=== PATIENT | female | born 1965 | race Caucasian/White ===

== ENCOUNTER → 2023-08-27 12:37 | Outpatient (CLI) | payer OTHER, SELFPAY ==
--- NOTE | 2023-08-27 12:43 | DI.RAD.S_ITS ---
PROCEDURE: XR FOOT RT MIN 3V INDICATIONS: bunion of right foot TECHNIQUE: Numeral 3 views of the foot were acquired. COMPARISON: None. FINDINGS: Bones: Fixation hardware traversing the 1st MTP. There is only slight valgus alignment. Plantar calcaneal enthesopathy. [id number] midfoot degenerative changes. Possible slight heterogeneity versus artifact of the 5th metatarsal on frontal view. Soft tissues: No suspicious calcifications. IMPRESSION: 1st MTP fixation hardware. Very slight valgus alignment. Plantar calcaneus enthesopathy. Fkys-bi-bjjauqas midfoot degenerative changes. Possible slight heterogeneity versus artifact of the 5th metatarsal on frontal view. Correlate with any symptoms. If there is further concern, consider cross-sectional imaging. Dictated by: Zeeshan Gillis M.D. on 08/27/2023 at 15:56 Approved by: Zeeshan Gillis M.D. on 08/27/2023 at 15:58
== END ==
LOC: RAD 12:41
PROVIDERS: PCP Nurse Practitioner Family; Referring Provider Nurse Practitioner Family; Visit Provider Nurse Practitioner Family
DX: M21.611 Bunion of right foot (principal); M77.31 Calcaneal spur, right foot
CPT/HCPCS: 73630

== ENCOUNTER → 2023-10-24 18:21 | Outpatient (CLI) | payer OTHER, SELFPAY ==
[2023-10-24 18:39] LABS: Appearance Urine UA CLEAR; Bilirubin Urine UA NEGATIVE (NEGATIVE); Color Urine UA YELLOW; Glucose Urine UA NEGATIVE (Negative); Ketones Urine UA NEGATIVE (NEGATIVE); Leukocyte Esterase Urine UA 1+ (NEGATIVE); Nitrite Urine UA POSITIVE (Negative); Occult Blood Urine UA NEGATIVE (Negative); Protein Urine UA NEGATIVE (Negative); Specific Gravity Urine UA >=1.030 (1.000-1.035); Urobilinogen Urine UA 0.2 E.U./dL (0.2)
[2023-10-24 18:40] LABS: pH Urine UA 5.5 (4.5-8.0)
[2023-10-24 18:48] LABS: Bacteria Urine Many (>30); RBC Urine 1-5/HPF (0-5/HPF); Squamous Epithelial Cell Urine 1-5 /HPF (0-5/HPF); Urine Volume 10mL (spun); WBC Urine 5-10/HPF (0-5/HPF)
== END ==
PROVIDERS: PCP Nurse Practitioner Family; Visit Provider Physician Assistant Surgical
DX: R35.0 Frequency of micturition (principal); R39.15 Urgency of urination
CPT/HCPCS: 81001; 87077; 87086; 87186

== ENCOUNTER → 2023-11-12 07:10 | Outpatient (CLI) | payer OTHER, SELFPAY | PROVIDERS: PCP Nurse Practitioner Family; Visit Provider Nurse Practitioner Family | DX: R30.0 Dysuria (principal); N39.0 Urinary tract infection, site not specified | CPT/HCPCS: 87086; 87210 ==

== ENCOUNTER → 2023-12-15 | Outpatient (CLI) | payer OTHER, SELFPAY ==
--- NOTE | 2023-12-15 09:22 | DI.MG.S_ITS ---
BILATERAL DIGITAL SCREENING MAMMOGRAM 3D/2D WITH CAD: 12/15/2023 CLINICAL: Baseline exam. Routine screening. No prior exams were available for comparison. There are scattered areas of fibroglandular density in both breasts (category b / 25%-50% glandular tissue). Current study was also evaluated with a Computer Aided Detection (CAD) system. No significant masses, calcifications, or other findings are seen in either breast. IMPRESSION: NEGATIVE There is no mammographic evidence of malignancy. A 1 year screening mammogram is recommended. Based on the Tyrer Cuzick model (a risk assessment model) the patient's lifetime risk is 3.4% and her 10 year risk is 1.1%. According to the ACR, ACS, and NCCN guidelines, an annual breast MRI exam along with mammogram is recommended if the patient's lifetime risk is 20% or greater. This exam was interpreted at Station ID: [id number]. NOTE: For mammograms, a report in lay terms will be sent to the patient. Approximately 15% of breast malignancies will not be visualized mammographically. In the management of a palpable breast mass, a negative mammogram must not discourage biopsy of a clinically suspicious lesion. Electronically Signed By: Asia chester/renato:12/22/2023 12:53:27 letter sent: Normal Exam ACR BI-RADS Category 1: Negative 3341F
== END ==
PROVIDERS: PCP Family Medicine; Referring Provider Family Medicine; Visit Provider Family Medicine
DX: Z12.31 Encounter for screening mammogram for malignant neoplasm of breast (principal); R92.323 Mammographic fibroglandular density, bilateral breasts
CPT/HCPCS: 77063; 77067

== ENCOUNTER → 2023-12-31 14:46 | Outpatient (CLI) | payer OTHER, SELFPAY ==
[2023-12-31 15:11] LABS: Add Manual Diff / Slide Review NO; Basophils Absolute Auto 100 /uL (0-100); Basophils Percent Auto 0.8 % (0-2); Eosinophils Absolute Auto 200 /uL (0-450); Eosinophils Percent Auto 2.2 % (2-4); Hematocrit 39.2 % (36-46); Hemoglobin 13.5 g/dL (12.0-16.0); Lymphocytes Absolute Auto 2800 /uL (1100-4500); Lymphocytes Percent Auto 35.9 % (25-40); Mean Corpuscular HGB Conc 34.4 % (30-36); Mean Corpuscular Hemoglobin 31.7 PG (26-34); Monocytes Absolute Auto 600 /uL (0-900); Monocytes Percent Auto 7.5 % (3-14); Neutrophils Absolute Auto 4100 /uL (1500-7000); Neutrophils Percent Auto 53.6 % (50-75); Platelet Count 323 X10^3/uL (150-400); Red Blood Cell Count 4.26 X10^6/uL (4.0-5.2); White Blood Cell Count 7.7 X10^3/uL (4.5-11.0)
[2023-12-31 15:30] LABS: Erythrocyte Sedimentation Rate 7 MM/HR (0-20)
[2023-12-31 15:34] LABS: Alanine Aminotransferase 31 IU/L (<35); Albumin 4.3 g/dL (3.5-5.0); Albumin Globulin Ratio 1.5 (1.0-2.8); Alkaline Phosphatase 42 U/L (38-126); Aspartate Aminotransferase 29 IU/L (14-36); BUN Creatinine Ratio 13.6 (6-22); Bilirubin Total 0.9 mg/dL (0.2-1.3); Blood Urea Nitrogen 11 mg/dL (7-17); C-Reactive Protein Quant < 0.5 mg/dL (<1.0); Calcium 9.6 mg/dL (8.4-10.2); Carbon Dioxide 26 mmol/L (22-32); Chloride 107 mmol/L (98-107); Estimated Glomerular Filt Rate > 60 mL/min (>60); Globulin 2.8 g/dL (1.7-4.1); Glucose 94 mg/dL (70-100); HEMOLYSIS 20 (0-50); Potassium 3.9 mmol/L (3.4-5.1); Sodium 139 mmol/L (137-145); Total Protein 7.1 g/dL (6.3-8.2)
[2023-12-31 15:48] LABS: Rheumatoid Factor 269.2 IU/mL (<12.0)
[2023-12-31 16:00] LABS: TSH w/ Reflex to FT4 1.49 uIU/mL (0.47-4.68)
== END ==
PROVIDERS: PCP Family Medicine; Referring Provider Family Medicine; Visit Provider Family Medicine
DX: E66.9 Obesity, unspecified (principal); M06.9 Rheumatoid arthritis, unspecified; Z72.0 Tobacco use; Z76.89 Persons encountering health services in other specified circumstances
CPT/HCPCS: 36415; 80053; 83036; 84443; 85025; 85651; 86140; 86430

== ENCOUNTER → 2024-01-27 07:51 | Outpatient (CLI) | payer OTHER, SELFPAY | PROVIDERS: PCP Family Medicine; Visit Provider Student in an Organized Health Care Education/Training Program | DX: T14.8XXA Other injury of unspecified body region, initial encounter (principal) | CPT/HCPCS: 87070; 87205 ==

== ENCOUNTER 2024-02-05 19:43 | Emergency (ER) | payer OTHER, SELFPAY ==
[2024-02-05 19:48] VITALS: BP 129/84; PULSE 67; RESP 16; TEMP 36.9; O2SAT 96; BMI 34.4
--- NOTE | 2024-02-05 21:16 | ED.RECABL ---
HPI - Recheck/Abnormal Lab/Rx General Chief Complaint: Recheck/Abnormal Lab/Rx Stated Complaint: Wound on abd won't heal with antibiotics Time Seen by Provider: 02/05/24 20:21 Source: patient Mode of arrival: Ambulatory History of Present Illness HPI narrative: Patient is a 58-year-old female who is here for evaluation a wound on her lower left abdomen that she states is not healing despite being on antibiotics. She was initially seen emergency department for a sinus infection. Was started on antibiotics. Who stated that she then developed a wound on her lower abdomen. She was seen again. Was started on a 2nd antibiotic for what she has 1 tablet left. She comes in the emergency department because she states that the wound is still present despite the antibiotics. Related Data Home Medications Medication Instructions Recorded Confirmed famotidine 10 mg tablet (Pepcid AC) 10 mg PO DAILY 12/31/23 01/21/24 sumatriptan succinate 50 mg tablet See Rx Instructions PO .COMPLEX 12/31/23 01/21/24 valacyclovir 500 mg tablet 500 mg PO DAILY 12/31/23 01/21/24 (Valtrex) Previous Rx's Medication Instructions Recorded losartan 100 1 tab PO DAILY #90 tabs 11/24/23 mg-hydrochlorothiazide 25 mg tablet metoprolol tartrate 100 mg tablet 100 mg PO BID #180 tabs 11/24/23 nabumetone 500 mg tablet 500 mg PO BID #180 tabs 11/24/23 omeprazole 40 mg capsule,delayed 40 mg PO DAILY #90 caps 11/24/23 release amoxicillin 875 mg tablet 875 mg PO BID #14 tabs 01/21/24 fluconazole 100 mg tablet 100 mg PO DAILY #1 tab 01/27/24 (Diflucan) Allergies Allergy/AdvReac Type Severity Reaction Status Date / Time varenicline [From Chantix] Allergy Severe Headache Verified 01/27/24 07:28 acetaminophen [From Vicodin] Allergy Intermediate Hives Verified 01/27/24 07:28 hydrocodone [From Vicodin] Allergy Intermediate Hives Verified 01/27/24 07:28 hydromorphone [From Dilaudid] Allergy Intermediate ITCHING Verified 01/27/24 07:28 hydroxychloroquine Allergy Intermediate Rash Verified 01/27/24 07:28 [From Plaquenil] ketorolac [From Toradol] Allergy Intermediate Rash Verified 01/27/24 07:28 lisinopril Allergy Intermediate Cough Verified 01/27/24 07:28 morphine Allergy Intermediate Rash Verified 01/27/24 07:28 codeine Allergy Hives Verified 01/27/24 07:28 Review of Systems Constitutional Constitutional: Reports as per HPI Integumentary/Breasts Skin/Breast: Reports system reviewed and no additional complaints, except as documented Patient History Social History Smoking Status: Current every day smoker Smoking Status: Current every day smoker alcohol intake frequency: holidays/special occasions only Substance Use Type: marijuana Exam Initial Vital Signs Initial Vital Signs: Vital Signs Temperature 98.4 F 02/05/24 19:48 Pulse Rate 67 02/05/24 19:48 Respiratory Rate 16 02/05/24 19:48 Blood Pressure 129/84 02/05/24 19:48 Pulse Oximetry 96 02/05/24 19:48 Oxygen Delivery Method Room Air 02/05/24 19:48 Skin Other: Patient has a 1 cm area of a superficial ulceration to the skin in her left lower abdomen. There was no surrounding erythema. There was no drainage. No induration. Course Vital Signs Vital signs: Vital Signs - 8 hr 02/05/24 21:28 Pulse Rate 60 Blood Pressure 148/82 H Pulse Oximetry 98 Oxygen Delivery Method Room Air MDM - Recheck/Abnormal Lab/Rx MDM Narrative Medical decision making narrative: The wound appears well. It appears to be healing. Was no signs that there was any cellulitis around the wound. Exam is not consistent with an abscess. There was no induration around the area. I suspect that the wound just has not completely healed. She has been cleaning it at home. She was also been putting a petroleum jelly over the area. Informed her that I would recommend that she not put anything further on the wound and just allow it to heal by itself. There was no indication and another round of antibiotics to her regimen. He was here return precautions. sHe expressed agreement. Discharge Plan Departure Patient Disposition: Home Clinical Impression: Wound of skin Activity Restrictions/Additional Instructions: The skin wound does appear to be healing appropriately. Finish the antibiotics that you are currently taking. Contact your primary doctor for a follow-up. Return to the emergency department for new or worsening symptoms. Prescriptions: No Action amoxicillin 875 mg tablet 875 mg PO BID Qty: 14 0RF fluconazole [Diflucan] 100 mg tablet 100 mg PO DAILY Qty: 1 0RF metoprolol tartrate 100 mg tablet 100 mg PO BID Qty: 180 1RF losartan-hydrochlorothiazide 100-25 mg tablet 1 tab PO DAILY Qty: 90 1RF nabumetone 500 mg tablet 500 mg PO BID Qty: 180 1RF omeprazole 40 mg capsule,delayed release(DR/EC) 40 mg PO DAILY Qty: 90 1RF sumatriptan succinate 50 mg tablet See Rx Instructions PO .COMPLEX Rx Instructions: take 1 tab at onset of headache; if no relief may repeat 1 tab after at least 2 hrs; max = 4 tabs/24 hr PO famotidine [Pepcid AC] 10 mg tablet 10 mg PO DAILY valacyclovir [Valtrex] 500 mg tablet 500 mg PO DAILY Referrals: Anjali Diggs DO [Primary Care Provider] - Stand Alone Forms: Patient Portal/API
[2024-02-05 21:28] VITALS: BP 148/82; PULSE 60; O2SAT 98
== END 2024-02-05 21:28 | disposition home or self-care (01) ==
PROVIDERS: Emergency Provider Emergency Medicine; PCP Family Medicine
DX: S30.92XA Unspecified superficial injury of abdominal wall, initial encounter (principal)
CPT/HCPCS: 99281

== ENCOUNTER → 2024-05-25 07:55 | Outpatient (CLI) | payer OTHER, SELFPAY ==
--- NOTE | 2024-05-25 07:57 | DI.RAD.S_ITS ---
PROCEDURE: XR CHEST 2V INDICATIONS: Persistent cough TECHNIQUE: 2 views of the chest were acquired. COMPARISON: [facility], CR, XR THORACIC SPINE 3 VIEWS, 04/26/2024, 9:41. FINDINGS: Surgical changes and devices: None. Lungs and pleura: No consolidation. Questionable prominent pulmonary markings with a central distribution. No pleural effusions or pneumothorax. Mediastinum: Mediastinal contours are normal. Heart size is normal. Bones and chest wall: No suspicious bony abnormalities. Soft tissues appear unremarkable. IMPRESSION: No consolidation. Questionable prominent pulmonary markings. This could represent viral pneumonia, reactive airways disease, or artifactual due to overlying breast tissue. Dictated by: Ap Zamora M.D. on 05/25/2024 at 9:01 Approved by: Ap Zamora M.D. on 05/25/2024 at 9:03
== END ==
PROVIDERS: PCP Family Medicine; Referring Provider Physician Assistant Surgical; Visit Provider Physician Assistant Surgical
DX: R05.9 Cough, unspecified (principal)
CPT/HCPCS: 71046

== ENCOUNTER 2024-05-28 09:57 | Emergency (ER) | payer OTHER, SELFPAY ==
[2024-05-28 10:07] VITALS: BP 158/90; PULSE 73; RESP 16; TEMP 36.6; O2SAT 96; BMI 31.4
[2024-05-28 10:10] VITALS: PULSE 68; RESP 17; O2SAT 95
--- NOTE | 2024-05-28 10:29 | ED_ITS ---
HPI - General Adult General Chief complaint: Dizziness Stated complaint: vertigo Time Seen by Provider: 05/28/24 10:10 Source: patient Mode of arrival: Ambulatory History of Present Illness HPI narrative: Patient is a 58-year-old female. Has a history of vertigo. Has meclizine for this. No specific diagnosis as to the cause of her vertigo. She states that she was at her normal state of health this morning. Was sitting on the couch looking at a electronic device with her grandkids. She states she had a sudden onset of vertigo. States it feels just like her prior episodes of vertigo. She did not take any of her home meclizine because she was actually at her daughter's house and not at her home. No numbness and tingling in her upper and lower extremities. States she has had some fullness in her ears recently. No fevers. No sore throat. No vomiting. Related Data Home Medications Medication Instructions Recorded Confirmed famotidine 10 mg tablet (Pepcid AC) 10 mg PO DAILY 12/31/23 05/25/24 sumatriptan succinate 50 mg tablet See Rx Instructions PO .COMPLEX 12/31/23 05/25/24 valacyclovir 500 mg tablet 500 mg PO DAILY 12/31/23 05/25/24 (Valtrex) albuterol sulfate 90 mcg/actuation inhalation 05/25/24 05/25/24 aerosol inhaler Previous Rx's Medication Instructions Recorded losartan 100 1 tab PO DAILY #90 tabs 11/24/23 mg-hydrochlorothiazide 25 mg tablet omeprazole 40 mg capsule,delayed 40 mg PO DAILY #90 caps 11/24/23 release bupropion HCl 150 mg 24 hr tablet, 150 mg PO QAM #30 tabs 03/30/24 extended release (Wellbutrin XL) azithromycin 250 mg tablet See Rx Instructions PO .COMPLEX #6 05/25/24 tabs benzonatate 200 mg capsule 200 mg PO BID PRN cough #30 caps 05/25/24 ipratropium bromide 21 mcg (0.03 2 spray intranasal BID PRN nasal 05/25/24 %) nasal spray congestion #30 mL meclizine 25 mg tablet 25 mg PO BID PRN dizziness #14 tabs 05/28/24 ondansetron 4 mg disintegrating 4 mg PO Q6H PRN nausea and 05/28/24 tablet vomiting #14 tabs Allergies Allergy/AdvReac Type Severity Reaction Status Date / Time varenicline [From Chantix] Allergy Severe Headache Verified 05/28/24 10:09 acetaminophen [From Vicodin] Allergy Intermediate Hives Verified 05/28/24 10:09 hydrocodone [From Vicodin] Allergy Intermediate Hives Verified 05/28/24 10:09 hydromorphone [From Dilaudid] Allergy Intermediate ITCHING Verified 05/28/24 10:09 hydroxychloroquine Allergy Intermediate Rash Verified 05/28/24 10:09 [From Plaquenil] ketorolac [From Toradol] Allergy Intermediate Rash Verified 05/28/24 10:09 lisinopril Allergy Intermediate Cough Verified 05/28/24 10:09 morphine Allergy Intermediate Rash Verified 05/28/24 10:09 codeine Allergy Hives Verified 05/28/24 10:09 Review of Systems Review of Systems Narrative: See HPI Patient History Social History Smoking Status: Current every day smoker Smoking Status: Current every day smoker alcohol intake frequency: holidays/special occasions only Substance Use Type: marijuana Exam Initial Vital Signs Initial Vital Signs: Vital Signs Temperature 97.8 F 05/28/24 10:07 Pulse Rate 73 05/28/24 10:07 Respiratory Rate 16 05/28/24 10:07 Blood Pressure 158/90 H 05/28/24 10:07 Pulse Oximetry 96 05/28/24 10:07 Oxygen Delivery Method Room Air 05/28/24 10:07 Const General: cooperative, comfortable and No ill appearing [facility] Head: normal to inspection and normocephalic Ears: hearing grossly normal bilaterally and TM's normal bilaterally Eyes Pupils: PERRL Resp Effort & Inspection: normal respiratory effort Auscultation: clear to auscultation bilaterally Cardio Rate: regular rate Rhythm: regular rhythm Neuro General: patient alert, patient awake, patient oriented x3 and moves all extremities Cognition: normal cognition Speech: speech normal Motor: muscle tone normal throughout Extrem General: capillary refill normal Course Orders Ordered: Discontinued Medications Al Hydrox/Mg Hydrox/Simethicone 20 ml/ Lidocaine HCl 15 ml 0 ml PO NOW ONE Stop: 05/28/24 11:01 Last Admin: 05/28/24 11:12 Dose: 35 ml Documented By: JOHNNY Meclizine HCl (Meclizine Hcl 12.5 Mg Tablet) 25 mg PO NOW ONE Stop: 05/28/24 10:30 Last Admin: 05/28/24 10:35 Dose: 25 mg Documented By: MARCUS Vital Signs Vital signs: Vital Signs - 8 hr 05/28/24 10:07 05/28/24 10:10 05/28/24 10:30 Temperature 97.8 F Pulse Rate 73 68 66 Respiratory Rate 16 17 12 Blood Pressure 158/90 H Pulse Oximetry 96 95 95 Oxygen Delivery Method Room Air 05/28/24 10:30 05/28/24 11:00 05/28/24 11:00 Temperature Pulse Rate 66 Respiratory Rate Blood Pressure 141/85 H 133/74 Pulse Oximetry 96 Oxygen Delivery Method 05/28/24 11:30 05/28/24 11:30 05/28/24 12:00 Temperature Pulse Rate 68 Respiratory Rate 11 L Blood Pressure 134/69 125/71 Pulse Oximetry 95 Oxygen Delivery Method 05/28/24 12:00 Temperature Pulse Rate 71 Respiratory Rate 18 Blood Pressure Pulse Oximetry 95 Oxygen Delivery Method Medical Decision Making MDM Narrative Medical decision making narrative: Patient does have a significant history of vertigo. Has meclizine at home. Has not taken the meclizine. Has been evaluated in the past by ENT and also has been to vertigo/balance clinic while she was living in [place]. Her presenting symptoms today are consistent with a prior history of vertigo. She only had minimal improvement after meclizine here. Not vomiting. Otherwise normal neurologic exam. Low suspicion that this is CVA. She was on antibiotics for pneumonia. She has a follow-up appointment with her primary doctor on Fri of next week. Will discharge home with instructions to continue to take her meclizine. Will provide antiemetics. Instructions to keep her follow-up appointment. She was given return precautions. Discharge Plan Departure Patient Disposition: Home Clinical Impression: Vertigo Instructions: DI for Vertigo Activity Restrictions/Additional Instructions: Recommend that you continue to take all of your medications as directed. Keep your scheduled appointment that you have with your primary doctor for Friday of next week. I would also recommend that you consider taking a antihistamine such as Claritin or Zyrtec. You can purchase this medication [id number]. Return to the emergency department for new symptoms. Prescriptions: New meclizine 25 mg tablet 25 mg PO BID PRN (Reason: dizziness) Qty: 14 0RF ondansetron 4 mg tablet,disintegrating 4 mg PO Q6H PRN (Reason: nausea and vomiting) Qty: 14 0RF No Action albuterol sulfate 90 mcg/actuation HFA aerosol inhaler inhalation azithromycin 250 mg tablet See Rx Instructions PO .COMPLEX Qty: 6 0RF Rx Instructions: For 250 mg dose pack: take 500 mg today (day 1), then 250 mg for 4 days (days 2-5) PO ipratropium bromide 21 mcg (0.03 %) spray,non-aerosol 2 spray intranasal BID PRN (Reason: nasal congestion) Qty: 30 0RF Rx Instructions: administer into each nostril benzonatate 200 mg capsule 200 mg PO BID PRN (Reason: cough) Qty: 30 0RF losartan-hydrochlorothiazide 100-25 mg tablet 1 tab PO DAILY Qty: 90 1RF omeprazole 40 mg capsule,delayed release(DR/EC) 40 mg PO DAILY Qty: 90 1RF sumatriptan succinate 50 mg tablet See Rx Instructions PO .COMPLEX Rx Instructions: take 1 tab at onset of headache; if no relief may repeat 1 tab after at least 2 hrs; max = 4 tabs/24 hr PO famotidine [Pepcid AC] 10 mg tablet 10 mg PO DAILY valacyclovir [Valtrex] 500 mg tablet 500 mg PO DAILY bupropion HCl [Wellbutrin XL] 150 mg tablet extended release 24 hr 150 mg PO QAM Qty: 30 3RF Referrals: Keith Richards MD [Physician] - Anjali Diggs DO [Primary Care Provider] - Stand Alone Forms: Patient Portal/API/Survey, Work Release Note
[2024-05-28 10:30] VITALS: BP 141/85; PULSE 66; RESP 12; O2SAT 95
[2024-05-28] MEDS: MECLIZINE HCL 12.5 MG TABLET 25 MG PO (10:35)
[2024-05-28 11:00] VITALS: BP 133/74; PULSE 66; O2SAT 96
--- NOTE | 2024-05-28 11:02 | PC.NURSE ---
Pt c/o left shoulder pain and indigestion. MD made aware.
[2024-05-28] MEDS: MAG HYDROX/ALUMINUM/SIMETH SUS 20 ML, LIDOCAINE VISCOUS 2% 15 ML PO (11:12)
[2024-05-28 11:30] VITALS: BP 134/69; PULSE 68; RESP 11; O2SAT 95
--- NOTE | 2024-05-28 11:31 | PC.NURSE ---
Patient reports a history of vertigo [facility] did a lot of exercises with her and doctors said there is nothing she can do that its something to do with the space between her throat and ear. she reports that medication helps the best, these episodes last for several weeks and she is very concerned about falls. Patient came with scapular pain and chest pain that has since resolved since receiving maalox, see MAR
[2024-05-28 12:00] VITALS: BP 125/71; PULSE 71; RESP 18; O2SAT 95
== END 2024-05-28 12:14 | disposition home or self-care (01) ==
PROVIDERS: Emergency Provider Emergency Medicine; PCP Family Medicine
DX: R42 Dizziness and giddiness (principal)
CPT/HCPCS: 99283

== ENCOUNTER → 2024-06-16 08:48 | Outpatient (CLI) | payer OTHER, SELFPAY ==
--- NOTE | 2024-06-16 08:54 | DI.CT.S_ITS ---
PROCEDURE: CT HEAD/BRAIN WO CON INDICATIONS: reports episode of slurring, 'not acting like herself' TECHNIQUE: Noncontrast 4.5 mm thick angled axial sections acquired from the foramen magnum to the vertex, with coronal and sagittal reformats. For radiation dose reduction, the following was used: automated exposure control, adjustment of mA and/or kV according to patient size. COMPARISON: None. FINDINGS: Image quality: Diagnostic. CSF spaces: Basal cisterns are patent. No extra-axial fluid collections. Ventricles are normal in size and shape. Brain: No midline shift. No intracranial masses or hemorrhage. Kruger-white matter interface is normal. Skull and face: Calvarium and visualized facial bones are intact, without suspicious lesions. Sinuses: Visualized sinuses demonstrate scattered areas of mucosal thickening. IMPRESSION: No acute intracranial pathology. Dictated by: Maria Elena Bellamy M.D. on 06/16/2024 at 13:15 Approved by: Maria Elena Bellamy M.D. on 06/16/2024 at 13:16
== END ==
PROVIDERS: PCP Family Medicine; Referring Provider Family Medicine; Visit Provider Family Medicine
DX: G11.8 Other hereditary ataxias (principal); R47.81 Slurred speech; R42 Dizziness and giddiness
CPT/HCPCS: 70450

== ENCOUNTER → 2025-01-01 09:32 | Outpatient (CLI) | payer OTHER, SELFPAY | PROVIDERS: PCP Family Medicine; Visit Provider Registered Nurse | DX: R30.0 Dysuria (principal) | CPT/HCPCS: 87077; 87086; 87186 ==